=== PATIENT | female | born 1930 | race Caucasian/White ===

== ENCOUNTER 2016-07-18 21:20 | Emergency (ER) | payer MEDICARE, OTHER ==
--- NOTE | 2016-07-18 22:21 | ED ---
Fall HPI - General Chief Complaint: Fall Stated Complaint: Fall/Head Injury Time Seen by Provider: 07/18/16 21:30 Source: patient, family (Daughter) Mode of arrival: EMS Limitations: altered mental status (History of underlying dementia) - History of Present Illness Initial Comments: Patient is an 86-year-old woman brought to be evaluated after she had a fall at her residence [facility]. The patient was noted to be less interested in eating tonight, and staff asked her what the problem was she related that she had a fall. The patient is not able to give any details about what happened. Most of the history is from the patient's daughter, who states that the patient does have significant underlying dementia. She states that the patient does appear to be quieter than usual, more somnolent, but otherwise similar about her usual baseline. The patient is denying any other injury, she indicates the area near her occiput as being somewhat sore but she declines pain medication. She denies any other injury. The patient has been ambulating and alert. MD Complaint: fall -: unknown When Fall Occurred: unsure Fall Witnessed: no Place Fall Occurred: home Loss of Consciousness: unsure Prolonged Down Time?: unclear - Related Data Home Medications Medication Instructions Recorded Confirmed Aspirin 81 mg PO DAILY 02/17/14 07/18/16 Donepezil [Aricept] 10 mg PO HS 02/17/14 07/18/16 Magnesium Oxide [Mag-Ox] 400 mg PO DAILY 02/17/14 07/18/16 amLODIPine BESYLATE/BENAZEPRIL 1 cap PO DAILY 02/17/14 07/18/16 [Lotrel 5-20 mg Capsule] metFORMIN HCL [Glucophage] 500 mg PO QA 02/17/14 07/18/16 Cholecalciferol [Vitamin D3] 4,000 unit PO DAILY 07/18/16 07/18/16 Levothyroxine Sodium [Synthroid] 100 mcg PO DAILY 07/18/16 07/18/16 Telmisartan [Micardis] 40 mg PO DAILY 07/18/16 07/18/16 Thiamine [Vitamin B-1] 100 mg PO DAILY 07/18/16 07/18/16 Allergies Allergy/AdvReac Type Severity Reaction Status Date / Time diazepam [From Valium] AdvReac Unknown Verified 07/18/16 21:57 Review of Systems ROS Statement: Those systems with pertinent positive or pertinent negative responses have been documented in the HPI. ROS Other: All systems not noted in ROS Statement are negative. Eyes: Denies: vision change Respiratory: Denies: cough, dyspnea Cardiovascular: Denies: chest pain Gastrointestinal: Denies: abdominal pain, vomiting Musculoskeletal: Denies: back pain Skin: Denies: rash Neurological: Reports: as per HPI, headache Hematological/Lymphatic: Denies: easy bleeding Past Medical History Past Medical History: Coronary Artery Disease (CAD), Cancer, Dementia, Diabetes Mellitus, Eye Disorder, Memory Impairment, Pneumonia, Thyroid Disorder Additional Past Medical History / Comment(s): CA - lymphoma, thyroid; cataracts History of Any Multi-Drug Resistant Organisms: None Reported Past Surgical History: Appendectomy Additional Past Surgical History / Comment(s): stent placed in neck Past Anesthesia/Blood Transfusion Reactions: No Reported Reaction Past Psychological History: No Psychological Hx Reported Smoking Status: Former smoker Past Alcohol Use History: None Reported Past Drug Use History: None Reported - Past Family History Father Family Medical History: CVA/TIA Mother Family Medical History: Myocardial Infarction (NM) General Exam Limitations: altered mental status General appearance: alert, in no apparent distress Head exam: Present: normocephalic, other (There is an approximately 5-6 cm hematoma overlying the occiput. There is no obvious bony deformity. There is mild tenderness.) Eye exam: Present: normal appearance, PERRL, EOMI. Absent: scleral icterus, conjunctival injection Neck exam: Present: normal inspection, full ROM. Absent: tenderness, meningismus Respiratory exam: Present: normal lung sounds bilaterally. Absent: respiratory distress, wheezes, rales, rhonchi, stridor Cardiovascular Exam: Present: regular rate, normal rhythm, systolic murmur ( Grade 1/6 systolic murmur). Absent: diastolic murmur, rubs, gallop GI/Abdominal exam: Present: soft. Absent: distended, tenderness, guarding, rebound, mass Extremities exam: Present: normal inspection, normal capillary refill. Absent: pedal edema, calf tenderness Back exam: Present: normal inspection. Absent: tenderness, CVA tenderness (R), CVA tenderness (L), paraspinal tenderness, vertebral tenderness Neurological exam: Present: alert, CN II-XII intact, reflexes normal. Absent: motor sensory deficit Skin exam: Present: warm, dry, intact, normal color, other (Review has an approximately 1 cm diameter mole at the superior posterior aspect of the neck. There is some palpable depth. She does family member states that this is a chronic finding). Absent: rash Course Vital Signs 07/18/16 21:24 Temperature 98.2 F Pulse Rate 82 Respiratory 20 Rate Blood Pressure 143/63 O2 Sat by Pulse 99 Oximetry Medical Decision Making - Medical Decision Making Discussed that the mole at the top of the patient's neck is concerning and recommended follow-up with dermatology to consider having biopsy. - EKG Data -: EKG Interpreted by Pa Rate: normal (Approximately 81 bpm) Interpretation: other (The patient's EKG shows what appears to be an atrial sensed, ventricular paced rhythm, that appears otherwise normal.) Disposition Clinical Impression: Closed head injury, Hematoma Disposition: HOME SELF-CARE Condition: Fair Instructions: Fall Prevention for Older Adults (ED), Head Injury (ED) Additional Instructions: As we discussed, follow-up with the oncology physician regarding the mole observed at the top of the neck. Referrals: Sherry Alonzo MD [Primary Care Provider] - 1-2 days Soren Dietz MD [STAFF PHYSICIAN] - 1-2 days
--- NOTE | 2016-07-18 22:51 | CT ---
EXAMINATION TYPE: CT brain wo con DATE OF EXAM: 07/18/2016 10:39 PM COMPARISON: May 16, 2012 HISTORY: Confusion today. Possible fall injury. CT DLP: 916.3 mGycm Automated exposure control for dose reduction was used. FINDINGS: There is no acute intracranial hemorrhage, mass effect, or midline shift identified. The ventricles a nd cortical sulci are prominent with age-related atrophic changes of brain. Periventricular white mat ter ischemic changes are suggested bilaterally. [id number] atrophic changes are suggested in th e cerebellum. Postsurgical changes are suggested in the bilateral eye globes. Mild mucosal thickening is suggested in the right maxillary sinus with chronic sinusitis changes. The re is opacification of mastoid air cells bilaterally suggestive of chronic mastoiditis. IMPRESSION: No acute intracranial hemorrhage, mass effect, or midline shift is seen. No significant interval change. Chronic mastoiditis changes bilaterally. Mild sinusitis changes.
[2016-07-18 23:34] VITALS: BP 147/70; PULSE 79; RESP 16; TEMP 97
== END 2016-07-18 23:40 | disposition home or self-care (01) ==
LOC: EC 21:20
DX: S00.93XA Contusion of unspecified part of head, initial encounter (principal); W19.XXXA Unspecified fall, initial encounter; Y92.009 Unspecified place in unspecified non-institutional (private) residence as the place of occurrence of the external cause; I25.10 Atherosclerotic heart disease of native coronary artery without angina pectoris; F03.90 Unspecified dementia, unspecified severity, without behavioral disturbance, psychotic disturbance, mood disturbance, and anxiety; E07.9 Disorder of thyroid, unspecified; Z85.72 Personal history of non-Hodgkin lymphomas; Z87.891 Personal history of nicotine dependence; Z79.82 Long term (current) use of aspirin; Z79.899 Other long term (current) drug therapy; Z79.84 Long term (current) use of oral hypoglycemic drugs; Z88.8 Allergy status to other drugs, medicaments and biological substances
CPT/HCPCS: 70450; 93005; 99284

== ENCOUNTER 2019-10-27 08:03 | Inpatient (IN) | payer MEDICARE, OTHER ==
[2019-10-27] MEDS ORDERED: VANCOMYCIN IV PER PHARMACY 1 EACH MISC MISCELLANE PRN (08:20)
[2019-10-27] MEDS ORDERED: ACETAMINOPHEN TAB 500 MG TAB PO STA (08:20)
[2019-10-27] MEDS ORDERED: CEFEPIME 2 GM in SODIUM CHLORIDE 0.9% 100 ML IVPB STA (08:21)
[2019-10-27] MEDS ORDERED: ACETAMINOPHEN SUPPOSITORY 650 MG SUPP RECTAL STA (08:27)
[2019-10-27] MEDS ORDERED: VANCOMYCIN 1,000 MG in SODIUM CHLORIDE 0.9% 250 ML IVPB STA (08:31)
--- NOTE | 2019-10-27 08:31 | ED ---
General Adult HPI - General Stated complaint: altered mental status/fever Time Seen by Provider: 10/27/19 08:06 - History of Present Illness Initial comments: Dictation was produced using [employer] dictation software. please excuse any grammatical, word or spelling errors. This patient was cared for during a federal and state declared state of emerg ency secondary to Covid 19 Chief Complaint: 89-year-old female brought in for fever and altered mental status History of Present Illness: Is 89-year-old female she is brought in from the [facility] where she was found to be unresponsive and febrile. Patient unable to provide HPI at this time. Patient brought in from [facility] which is a geriatric assisted living facility. She does have a living will that states that she is DO NOT RESUSCITATE. According to EMS upon initial evaluation patient was alert and oriented 0. She does not follow commands. Medications reviewed. Patient has history of hypertension, dementia, hypothyroidism, [id number] diabetes The ROS documented in this emergency department record has been reviewed and confirmed by me. Those systems with pertinent positive or negative responses have been documented in the HPI. All other systems are other negative and/or noncontributory. PHYSICAL EXAM: General Impression: Unresponsive, contracture of the left upper extremity, moves right upper extremity and bilateral lower extremities to nail bed pressure HEENT: Normocephalic atraumatic, extra-ocular movements intact, pupils equal and reactive to light bilaterally, dry mucous membranes. Cardiovascular: Heart regular rate and rhythm Chest: Mildly tachypneic Abdomen: abdomen soft, non-tender, non-distended, no organomegaly Musculoskeletal: Pulses present and equal in all extremities, no peripheral edema Motor: no focal deficits noted Neurological: Does not follow commands, does not speak, contracture of the left upper extremity. Moves other extremities to painful stimuli. Skin: Intact with no visualized rashes Rectal exam: Grade 1 Sacral ulcer, no perirectal induration or fullness ED course: 89-year-old female presents with altered mental status and pyrexia. It is unclear what patient's baseline mental status is. Concerning patient is a resident at a assisted living facility it is assumed that patient is rather high functioning. She has minimal comorbidities according to her daily medication li [facility]. Nurse had discussion with patient's daughter. Daughter reports that patient is usually a known time 0. Laboratory evaluation obtained. Leukocytosis of 15.4, neutrophils of 12.5. Coag panel unremarkable. Metabolic panel shows anion gap acidosis. Lactic acidosis 2.8. Elevated BUN to creatinine ratio with mild uremia. Urinalysis is negative for UTI. Computed tomography scan of the brain is unremarkable. Chest x-ray concerning for CHF versus pneumonia. Computed tomography scan of the a bdomen and pelvis was obtained showing findings of pneumonia at the lung bases. Is also findings to suggest enteritis fecal impaction and colitis. Patient broad-spectrum antibiotics. Patient hemodynamically stable at this time. The catheter was placed. Pending urine studies. Pending coronavirus. Patient be continued on coronavirus precautions. EKG interpretation: Ventricular rate 119, ventricular paced rhythm. No criteria to suggest concerning EKG changes based on Sgarbossa criteria - Related Data Home Medications Medication Instructions Recorded Confirmed Aspirin 81 mg PO DAILY 02/17/14 07/18/16 Donepezil [Aricept] 10 mg PO HS 02/17/14 07/18/16 Magnesium Oxide [Mag-Ox] 400 mg PO DAILY 02/17/14 07/18/16 amLODIPine BESYLATE/BENAZEPRIL 1 cap PO DAILY 02/17/14 07/18/16 [Lotrel 5-20 mg Capsule] metFORMIN HCL [Glucophage] 500 mg PO QAM 02/17/14 07/18/16 Cholecalciferol [Vitamin D3] 4,000 unit PO DAILY 07/18/16 07/18/16 Levothyroxine Sodium [Synthroid] 100 mcg PO DAILY 07/18/16 07/18/16 Telmisartan [Micardis] 40 mg PO DAILY 07/18/16 07/18/16 Thiamine [Vitamin B-1] 100 mg PO DAILY 07/18/16 07/18/16 Allergies Allergy/AdvReac Type Severity Reaction Status Date / Time diazepam [From Valium] AdvReac Unknown Verified 07/18/16 21:57 Review of Systems ROS Statement: Those systems with pertinent positive or pertinent negative responses have been documented in the HPI. ROS Other: All systems not noted in ROS Statement are negative. Past Medical History Past Medical History: Coronary Artery Disease (CAD), Cancer, Dementia, Diabetes Mellitus, Eye Disorder, Memory Impairment, Pneumonia, Thyroid Disorder Additional Past Medical History / Comment(s): CA - lymphoma, thyroid; cataracts History of Any Multi-Drug Resistant Organisms: None Reported Past Surgical History: Appendectomy Additional Past Surgical History / Comment(s): stent placed in neck Past Anesthesia/Blood Transfusion Reactions: No Reported Reaction Past Psychological History: No Psychological Hx Reported Smoking Status: Former smoker Past Alcohol Use History: None Reported Past Drug Use History: None Reported - Past Family History Father Family Medical History: CVA/TIA Mother Family Medical History: Myocardial Infarction (NH) Course Vital Signs 10/27/19 08:23 Temperature 103.7 F H Pulse Rate 124 H Respiratory 26 H Rate Blood Pressure 172/95 O2 Sat by Pulse 100 Oximetry Medical Decision Making - Lab Data Result diagrams: 10/27/19 08:26 10/27/19 08:26 Lab Results 10/27/19 10/27/19 10/27/19 Range/Units 08:26 08:26 08:26 WBC 15.4 H (3.8-10.6) k/uL RBC 4.44 (3.80-5.40) m/uL Hgb 13.6 (11.4-16.0) gm/dL Hct 43.2 (34.0-46.0) % MCV 97.4 (80.0-100.0) fL MCH 30.7 (25.0-35.0) pg MCHC 31.5 (31.0-37.0) g/dL RDW 13.6 (11.5-15.5) % Plt Count 235 (150-450) k/uL Neutrophils % 82 % Lymphocytes % 16 % Monocytes % 1 % Eosinophils % 0 % Basophils % 0 % Neutrophils # 12.5 H (1.3-7.7) k/uL Lymphocytes # 2.4 (1.0-4.8) k/uL Monocytes # 0.2 (0-1.0) k/uL Eosinophils # 0.0 (0-0.7) k/uL Basophils # 0.1 (0-0.2) k/uL PT 11.4 (9.0-12.0) sec INR 1.1 (<1.2) APTT 24.0 (22.0-30.0) sec Sodium 137 (137-145) mmol/L Potassium 4.1 (3.5-5.1) mmol/L Chloride 103 (98-107) mmol/L Carbon Dioxide 19 L (22-30) mmol/L Anion Gap 15 mmol/L BUN 23 H (7-17) mg/dL Creatinine 0.78 (0.52-1.04) mg/dL Est GFR (CKD-EPI)AfAm 79 (>60 ml/min/1.73 sqM) Est GFR (CKD-EPI)NonAf 69 (>60 ml/min/1.73 sqM) Glucose 289 H (74-99) mg/dL Plasma Lactic Acid Jaime (0.7-2.0) mmol/L Calcium 8.9 (8.4-10.2) mg/dL Total Bilirubin 0.9 (0.2-1.3) mg/dL AST 111 H (14-36) U/L ALT 40 H (4-34) U/L Alkaline Phosphatase 123 (38-126) U/L C-Reactive Protein (<10.0) mg/L Total Protein 7.7 (6.3-8.2) g/dL Albumin 3.9 (3.5-5.0) g/dL Urine Color Urine Appearance (Clear) Urine pH (5.0-8.0) Ur Specific [place] (1.001-1.035) Urine Protein (Negative) Urine Glucose (UA) (Negative) Urine Ketones (Negative) Urine Blood (Negative) Urine Nitrite (Negative) Urine Bilirubin (Negative) Urine Urobilinogen (<2.0) mg/dL Ur Leukocyte Esterase (Negative) Urine RBC (0-5) /hpf Urine WBC (0-5) /hpf Ur Squamous Epith Cells (0-4) /hpf Urine Bacteria (None) /hpf Hyaline Casts (0-2) /lpf Urine Mucus (None) /hpf 10/27/19 10/27/19 10/27/19 Range/Units 08:26 08:26 09:47 WBC (3.8-10.6) k/uL RBC (3.80-5.40) m/uL Hgb (11.4-16.0) gm/dL Hct (34.0-46.0) % MCV (80.0-100.0) fL MCH (25.0-35.0) pg MCHC (31.0-37.0) g/dL RDW (11.5-15.5) % Plt Count (150-450) k/uL Neutrophils % % Lymphocytes % % Monocytes % % Eosinophils % % Basophils % % Neutrophils # (1.3-7.7) k/uL Lymphocytes # (1.0-4.8) k/uL Monocytes # (0-1.0) k/uL Eosinophils # (0-0.7) k/uL Basophils # (0-0.2) k/uL PT (9.0-12.0) sec INR (<1.2) APTT (22.0-30.0) sec Sodium (137-145) mmol/L Potassium (3.5-5.1) mmol/L Chloride (98-107) mmol/L Carbon Dioxide (22-30) mmol/L Anion Gap mmol/L BUN (7-17) mg/dL Creatinine (0.52-1.04) mg/dL Est GFR (CKD-EPI)AfAm (>60 ml/min/1.73 sqM) Est GFR (CKD-EPI)NonAf (>60 ml/min/1.73 sqM) Glucose (74-99) mg/dL Plasma Lactic Acid Jaime 2.8 H* (0.7-2.0) mmol/L Calcium (8.4-10.2) mg/dL Total Bilirubin (0.2-1.3) mg/dL AST (14-36) U/L ALT (4-34) U/L Alkaline Phosphatase (38-126) U/L C-Reactive Protein <5.0 (<10.0) mg/L Total Protein (6.3-8.2) g/dL Albumin (3.5-5.0) g/dL Urine Color Yellow Urine Appearance Cloudy H (Clear) Urine pH 6.0 (5.0-8.0) Ur Specific [place] 1.031 (1.001-1.035) Urine Protein 3+ H (Negative) Urine Glucose (UA) 2+ H (Negative) Urine Ketones 1+ H (Negative) Urine Blood Small H (Negative) Urine Nitrite Negative (Negative) Urine Bilirubin Negative (Negative) Urine Urobilinogen <2.0 (<2.0) mg/dL Ur Leukocyte Esterase Negative (Negative) Urine RBC 4 (0-5) /hpf Urine WBC 3 (0-5) /hpf Ur Squamous Epith Cells <1 (0-4) /hpf Urine Bacteria Rare H (None) /hpf Hyaline Casts 1 (0-2) /lpf Urine Mucus Rare H (None) /hpf Disposition Clinical Impression: Sepsis Disposition: ADMITTED IP TO THIS HOSP Condition: Critical Referrals: None,Stated [Primary Care Provider] - 1-2 days Decision Time: 10:23
[2019-10-27] MEDS ORDERED: SODIUM CHLORIDE 0.9% 500 ML 100 ML IV STA (08:39)
[2019-10-27 08:42] LABS: Basophils # (A) 0.1 k/uL (0-0.2); Basophils % (A) 0 %; Eosinophils % (A) 0 %; HCT 43.2 % (34.0-46.0); HGB 13.6 gm/dL (11.4-16.0); Lymphocytes # (A) 2.4 k/uL (1.0-4.8); Lymphocytes % (A) 16 %; MCH 30.7 pg (25.0-35.0); MCHC 31.5 g/dL (31.0-37.0); MCV 97.4 fL (80.0-100.0); Mean Platelet Volume 8.7; Monocytes # (A) 0.2 k/uL (0-1.0); Monocytes % (A) 1 %; Neutrophils # (A) 12.5 k/uL (1.3-7.7); Neutrophils % (A) 82 %; Platelet Count 235 k/uL (150-450); RBC 4.44 m/uL (3.80-5.40); RDW 13.6 % (11.5-15.5); WBC 15.4 k/uL (3.8-10.6)
[2019-10-27 08:47] LABS: Albumin 3.9 g/dL (3.5-5.0); Calcium 8.9 mg/dL (8.4-10.2); Potassium 4.1 mmol/L (3.5-5.1); Total Bilirubin 0.9 mg/dL (0.2-1.3); Total Protein 7.7 g/dL (6.3-8.2)
[2019-10-27 08:50] LABS: INR 1.1 (<1.2); Prothrombin Time 11.4 sec (9.0-12.0)
--- NOTE | 2019-10-27 09:18 | XR ---
EXAMINATION TYPE: XR chest 1V portable DATE OF EXAM: 10/27/2019 COMPARISON: Prior chest 02/18/2014 HISTORY: Fever, loss of consciousness, abnormal chest x-ray TECHNIQUE: Single frontal view of the chest is obtained. FINDINGS: The heart is enlarged. There is a generator in the left pectoral region, leads in the righ t atrium and ventricle. Patient is rotated. There is no evident pneumothorax. Patchy bibasilar increa sed attenuation is present, the interstitium and central vascularity appear prominently. Aorta is den se. IMPRESSION: Correlate for congestive heart failure. Pneumonia not excluded.
--- NOTE | 2019-10-27 09:23 | CT ---
EXAMINATION TYPE: CT brain wo con DATE OF EXAM: 10/27/2019 COMPARISON: Prior CT brain 07/18/2016 HISTORY: AMS CT DLP: 1043.4 mGycm Automated exposure control for dose reduction was used. Head CT performed without contrast FINDINGS: There is no significant interval change. Cortical atrophy is likely age-related. Periventricular whit e matter shows patchy low attenuation. There is no hemorrhage or hydrocephalus. Cerebral vascular jas cifications are noted. Paranasal sinuses and mastoid air cells as visualized are remarkable for some inflammatory change in the left mastoids.. IMPRESSION: NO ACUTE BRAIN ABNORMALITY. MILD INFLAMMATORY CHANGE LEFT MASTOID AIR CELLS
[2019-10-27] MEDS: SODIUM CHLORIDE 0.9% 500 ML 500 ML IV SCH ×3 (09:28→10:08)
[2019-10-27 10:02] LABS: Appearance,Urine Cloudy (Clear); Bacteria,Urine Rare /hpf; Bilirubin,Urine Negative (Negative); Blood,Urine Small (Negative); Color,Urine Yellow; Glucose,Urine (UA) 2+ (Negative); Hyaline Casts,Urine 1 /lpf (0-2); Ketones,Urine 1+ (Negative); Leukocyte Esterase,Urine Negative (Negative); Mucus,Urine Rare /hpf; Nitrite,Urine Negative (Negative); Protein,Urine 3+ (Negative); RBC,Urine 4 /hpf (0-5); Specific Gravity,Urine 1.031 (1.001-1.035); Squamous Epithelial Cell,Urine <1 /hpf (0-4); Urobilinogen,Urine <2.0 mg/dL (<2.0); WBC,Urine 3 /hpf (0-5)
--- NOTE | 2019-10-27 10:10 | CT ---
EXAMINATION TYPE: CT abdomen pelvis w con DATE OF EXAM: 10/27/2019 COMPARISON: Chest x-ray same date HISTORY: Sepsis CT DLP: 638.5 mGycm Automated exposure control for dose reduction was used. TECHNIQUE: Helical acquisition of images from the lung bases through the pelvis have been completed. CONTRAST: Performed without Oral Contrast and with IV Contrast, patient injected with 100 mL of Isovue 300. FINDINGS: There are some anasarca changes present.0 LUNG BASES: Bilateral airspace disease is noted at the lung bases. Intracardiac leads are present. No pericardial effusion, no pleural effusion.. AORTA: No significant abnormality is appreciated. LIVER/GB: Mild prominence of intrahepatic biliary ducts likely due to postcholecystectomy change. PANCREAS: Calcifications along and atrophic pancreas with some low attenuation possibly representing pseudocyst formation or atrophy versus prominence of the pancreatic duct suggest chronic pancreatitis . SPLEEN: No significant abnormality is seen. ADRENALS: No significant abnormality is seen. KIDNEYS: Extensive cystic change present within the upper pole the left kidney and parapelvic cysts w as smaller subcentimeter cortical cyst associated with the right kidney. REPRODUCTIVE ORGANS: Extensive calcifications within the uterus and be due to fibroids. BOWEL: Small bowel folds show some questionable wall thickening and fluid-filled appearance, no obst ruction. Appendix is not seen. There is fecal distention of the rectum, correlate for stroke oral col itis, fecal impaction. Small amount of inflammatory change present in the surrounding fat, minimal fl uid density FREE AIR: No Free Air visible. ASCITES: None visible. PELVIC ADENOPATHY: None visualized. RETROPERITONEAL ADENOPATHY: No Retroperitoneal Adenopathy visible. URINARY BLADDER: No significant abnormality is seen. OSSEOUS STRUCTURES: Suspect osteoporotic appearance, there is heterogeneous density. Degenerative di sc changes are present in the lumbar spine with anterolisthesis L4-5, vacuum phenomenon intervertebra l levels multiple levels. There is multilevel spondylosis present.. IMPRESSION: CORRELATE FOR PNEUMONIA, PULMONARY EDEMA. POSTOP CHANGES. FINDINGS OF CHRONIC PANCREATITIS. HETEROGEN EOUS BONE DENSITY IS INDETERMINATE. CORRELATE FOR ENTERITIS, FECAL IMPACTION, AILYN COLITIS.
[2019-10-27] MEDS ORDERED: NALOXONE 0.4 MG/ML 1 ML VIAL IV PRN (10:19)
[2019-10-27] MEDS ORDERED: ONDANSETRON 4 MG/2 ML VIAL IVP PRN (10:19)
[2019-10-27] MEDS: SODIUM CHLORIDE 0.9% 1,000 ML IV SCH ×2 (12:13→21:05)
[2019-10-27] MEDS ORDERED: PNEUMONIA PROTOCOL UTILIZED 1 EACH MISC PO PRN (13:46)
[2019-10-27] MEDS ORDERED: MELATONIN 3 MG TABLET PO PRN (13:46)
[2019-10-27] MEDS ORDERED: ACETAMINOPHEN TAB 325 MG TAB PO PRN (13:46)
--- NOTE | 2019-10-27 13:50 | P.HPIM ---
History of Present Illness H&P Date: 10/27/19 Chief Complaint: altered mentation Patient is an 89 yo CF with dementia, diabetes, hypothyroidism, and multiple other comorbid conditions who presented to the emergency department via EMS for altered mentation. Per EMS patient was 85% on room and air and placed on non rebreather. She was also sound to be soiled with soft brown stool and urine. On arrival to the ED her rectal temp was 103.7. Labs showed a WBC of 15.4, CO 2 19, Aniong gap 15, blood sugar 289, and lactic acid 2.8. She had mildly elevated AST and ALT. Urinalsysis showed glucosuria, proteinuria, and urine ketones. CXR showed patchy bibasilar infiltrates. CT head showed no acute brain abnormality but mild inflammatory changes left mastoid air cell. CT abd and pelvis showed pneumonia or pulm edema, chronic pancreatitis, with fecal impaction and possible colitis. She was given cefepime and vanco in the ED as well as 3L of IV fluid. Daughter was called and confirmed that patient is a DNR. Patient seen and examined at bedside. She is alert to self alone, able to follow commands. Attempted to call Daughter and no answer. Past medical history is reviewed and verified by reviewing nursing documentation and prior hospitalization in February 2014. Review of Systems Unable to obtain review of systems secondary to advanced dementia ROS unobtainable: due to mental status Past Medical History Past Medical History: Coronary Artery Disease (CAD), Cancer, Dementia, Diabetes Mellitus, Eye Disorder, Memory Impairment, Pneumonia, Thyroid Disorder Additional Past Medical History / Comment(s): CA - lymphoma, thyroid; cataracts, third-degree AV block History of Any Multi-Drug Resistant Organisms: None Reported Past Surgical History: Appendectomy Additional Past Surgical History / Comment(s): stent placed in neck, permanent pacemaker Past Anesthesia/Blood Transfusion Reactions: No Reported Reaction Past Psychological History: No Psychological Hx Reported Smoking Status: Former smoker Past Alcohol Use History: None Reported Past Drug Use History: None Reported - Past Family History Father Family Medical History: CVA/TIA Mother Family Medical History: Myocardial Infarction (ND) Medications and Allergies Home Medications Medication Instructions Recorded Confirmed Type Aspirin 81 mg PO DAILY 02/17/14 07/18/16 History Donepezil [Aricept] 10 mg PO HS 02/17/14 07/18/16 History Magnesium Oxide [Mag-Ox] 400 mg PO DAILY 02/17/14 07/18/16 History amLODIPine BESYLATE/BENAZEPRIL 1 cap PO DAILY 02/17/14 07/18/16 History [Lotrel 5-20 mg Capsule] metFORMIN HCL [Glucophage] 500 mg PO QAM 02/17/14 07/18/16 History Cholecalciferol [Vitamin D3] 4,000 unit PO DAILY 07/18/16 07/18/16 History Levothyroxine Sodium [Synthroid] 100 mcg PO DAILY 07/18/16 07/18/16 History Telmisartan [Micardis] 40 mg PO DAILY 07/18/16 07/18/16 History Thiamine [Vitamin B-1] 100 mg PO DAILY 07/18/16 07/18/16 History Allergies Allergy/AdvReac Type Severity Reaction Status Date / Time diazepam [From Valium] AdvReac Unknown Verified 07/18/16 21:57 Physical Exam Osteopathic Statement: *. No significant issues noted on an osteopathic structural exam other than those noted in the History and Physical/Consult. Vitals: Vital Signs Temp Pulse Resp BP Pulse Ox 10/27/19 12:00 78 18 92/52 96 10/27/19 11:00 80 18 95/50 96 10/27/19 10:29 100.6 F H 89 18 103/53 96 10/27/19 09:29 18 10/27/19 08:23 103.7 F H 124 H 26 H 172/95 100 Intake and Output 10/26/19 10/27/19 10/27/19 22:59 06:59 14:59 Output Total 350 Balance -350 Output: Urine 350 Uretheral (Hodge) 350 Other: Weight 51.256 kg General: Ill appearing, no distress, appears at stated age, normal weight Derm: no unusual rashes/lesions no unusual ecchymoses, warm, dry Head: atraumatic, normocephalic, symmetric Eyes: EOMI, no lid lag, anicteric sclera, pupils equal round reactive to light ENT: Nose and ears atraumatic, no thrush, no pharyngeal erythema Neck: No thyromegaly, no cervical lymphadenopathy, trachea midline, supple Mouth: no lip lesion, mucus membranes dry Cardiovascular: S1S2 reg, no murmur, positive posterior tibial pulse bilateral, 2+ edema bilateral lower extremities, capillary refill less than 2 seconds Lungs: Crackles bilateral bases right greater than left , no accessory muscle use, mild conversational dyspnea Abdominal: soft, nontender to palpation, no guarding, no appreciable organomegaly, normal bowel sounds Ext: no gross muscle atrophy, muscle strength 5 out of 5 in all 4 extremities grossly, no contractures, Neuro: CN II-XI grossly intact, light touch intact all 4 extremities, finger to nose within normal limits, Psych: Alert , oriented to self only not time or location, appropriate affect Results CBC & Chem 7: 10/27/19 08:26 10/27/19 08:26 Labs: Abnormal Lab Results - Last 24 Hours (Table) 10/27/19 10/27/19 10/27/19 Range/Units 08:26 08:26 08:26 WBC 15.4 H (3.8-10.6) k/uL Neutrophils # 12.5 H (1.3-7.7) k/uL Carbon Dioxide 19 L (22-30) mmol/L BUN 23 H (7-17) mg/dL Glucose 289 H (74-99) mg/dL Plasma Lactic Acid Jaime 2.8 H* (0.7-2.0) mmol/L AST 111 H (14-36) U/L ALT 40 H (4-34) U/L Urine Appearance (Clear) Urine Protein (Negative) Urine Glucose (UA) (Negative) Urine Ketones (Negative) Urine Blood (Negative) Urine Bacteria (None) /hpf Urine Mucus (None) /hpf 10/27/19 Range/Units 09:47 WBC (3.8-10.6) k/uL Neutrophils # (1.3-7.7) k/uL Carbon Dioxide (22-30) mmol/L BUN (7-17) mg/dL Glucose (74-99) mg/dL Plasma Lactic Acid Jaime (0.7-2.0) mmol/L AST (14-36) U/L ALT (4-34) U/L Urine Appearance Cloudy H (Clear) Urine Protein 3+ H (Negative) Urine Glucose (UA) 2+ H (Negative) Urine Ketones 1+ H (Negative) Urine Blood Small H (Negative) Urine Bacteria Rare H (None) /hpf Urine Mucus Rare H (None) /hpf Chest x-ray: report reviewed, image reviewed (Bilateral interaction initial infiltrates right greater than left) CT scan - abdomen: report reviewed CT scan - pelvis: report reviewed Thrombosis Risk Factor Assmnt - DVT/VTE Prophylaxis DVT/VTE Prophylaxis: Mechanical Prophylaxis ordered Assessment and Plan Assessment: Bilateral interstitial infiltrate with sepsis -Suspect pneumonia given given sepsis criteria -Patient does have bilateral lower extremity edema and will check echocardiogram to rule out possibility of congestive heart failure -Change antibiotics to Rocephin and Zithromax -Repeat chest x-ray in a.m. -Await Covid 19 testing -Patient is unable to produce sputum culture -Bronchodilators - await procalcitonin - await blood cultures Probable fecal impaction vs colitis -Enema 1 -continue to monitor for signs of colitis, will be on rocephin, if develops pain, continued fever will add flagyl Lactic acidosis -IV fluids Diabetes mellitus type 2 -Hold oral medications -Sliding-scale insulin -Check hemoglobin A1c Transaminitis -Suspect this to be reflective of sepsis -Repeat LFTs in a.m. -If continue to elevate will check hepatitis profiles and liver ultrasound Anion gap metabolic acidosis -Likely related to lactic acidosis -IV fluids -Repeat in a.m. 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 Surrogate decision-maker: Daughter CODE STATUS: DO NOT RESUSCITATE, confirmed by emergency department DVT prophylaxis: Lovenox Discussed with: Patient, nursing Anticipated discharge date: 3-[address]: [facility] A total of 65 minutes were spent on the care of this complex patient more than 5 0% of the time was spent in counseling and care coordination.
[2019-10-27 15:02] LABS: Glucose,Whole Blood 211 mg/dL (75-99)
[2019-10-27] MEDS ORDERED: LISINOPRIL 10 MG TAB PO SCH (20:00)
[2019-10-27] MEDS ORDERED: amLODIPine 2.5 MG TAB PO SCH (20:00)
[2019-10-27 20:08] LABS: Glucose,Whole Blood 192 mg/dL (75-99)
[2019-10-27] MEDS: INSULIN ASPART (NovoLOG) 100 UNIT/ML VIAL SQ SCH ×2 (20:53→21:02)
[2019-10-27] MEDS: AZELASTINE 137MCG/SPRAY EA NOSTRIL SCH (21:02)
[2019-10-27] MEDS: MIRTAZAPINE 15 MG TAB PO SCH (21:03)
[2019-10-28] MEDS ORDERED: SODIUM CHLORIDE 0.9% 500 ML 500 ML IV ONE (04:25)
[2019-10-28] MEDS: SODIUM CHLORIDE 0.9% 1,000 ML IV SCH ×2 (04:41→20:11)
[2019-10-28 06:18] LABS: Glucose,Whole Blood 99 mg/dL (75-99)
[2019-10-28] MEDS: INSULIN ASPART (NovoLOG) 100 UNIT/ML VIAL SQ SCH ×4 (06:38→20:05)
[2019-10-28] MEDS ORDERED: LOSARTAN 50 MG TAB PO SCH (08:00)
[2019-10-28] MEDS: PANTOPRAZOLE 40 MG/10 ML VIAL IV SCH (08:13)
[2019-10-28] MEDS: ASPIRIN 81 MG PO SCH (08:13)
[2019-10-28] MEDS: LEVOTHYROXINE 112 MCG TAB PO SCH (08:13)
--- NOTE | 2019-10-28 08:17 | XR ---
EXAMINATION TYPE: XR chest 1V portable DATE OF EXAM: 10/28/2019 COMPARISON: 10/27/2019 HISTORY: COVID 19 pneumonia TECHNIQUE: Single frontal view of the chest is obtained. FINDINGS: Improved aeration of the right middle lobe and right lung base. Strand-like probable atele ctasis at the left lung base. Biapical pleural parenchymal scarring remains. Cardiomediastinal silhou ette is stable with dual lead left-sided cardiac device. Diffuse osseous demineralization. IMPRESSION: Improved multifocal right basilar and right middle lobe consolidations with strand-like left basilar probable atelectasis.
[2019-10-28 08:32] LABS: Basophils % (A) 0 %; Eosinophils % (A) 0 %; HCT 34.7 % (34.0-46.0); Hypochromasia Slight; Lymphocytes # (A) 0.8 k/uL (1.0-4.8); Lymphocytes % (A) 7 %; MCHC 31.8 g/dL (31.0-37.0); MCV 100.5 fL (80.0-100.0); Macrocytosis Slight; Mean Platelet Volume 9.2; Monocytes # (A) 0.5 k/uL (0-1.0); Monocytes % (A) 4 %; Neutrophils # (A) 10.4 k/uL (1.3-7.7); Neutrophils % (A) 88 %; Platelet Count 127 k/uL (150-450); RBC 3.45 m/uL (3.80-5.40); RDW 13.9 % (11.5-15.5); WBC 11.8 k/uL (3.8-10.6)
[2019-10-28 08:44] LABS: Albumin 2.5 g/dL (3.5-5.0); Calcium 7.5 mg/dL (8.4-10.2); Magnesium 1.3 mg/dL (1.6-2.3); Total Bilirubin 0.5 mg/dL (0.2-1.3); Total Protein 5.5 g/dL (6.3-8.2)
[2019-10-28 08:50] LABS: D-Dimer 3.1 mg/L FEU (<0.60); Prothrombin Time 10.7 sec (9.0-12.0)
[2019-10-28 08:56] LABS: C Reactive Protein 18.3 mg/L (<10.0)
[2019-10-28] MEDS ORDERED: VANCOMYCIN 1,000 MG in SODIUM CHLORIDE 0.9% 250 ML IVPB SCH (09:00)
[2019-10-28] MEDS: AZELASTINE 137MCG/SPRAY EA NOSTRIL SCH ×2 (09:45→20:11)
[2019-10-28 11:44] LABS: Glucose,Whole Blood 95 mg/dL (75-99)
--- NOTE | 2019-10-28 15:00 | ECHOF ---
Referral Reason:chf MEASUREMENTS -------- HEIGHT: 152.4 cm WEIGHT: 41.7 kg BP: 100/51 IVSd: 1.5 cm (0.6 - 1.1) LVIDd: 3.5 cm (3.9 - 5.3) LVPWd: 1.3 cm (0.6 - 1.1) IVSs: 1.6 cm LVIDs: 2.5 cm LVPWs: 1.6 cm LA Diam: 3.6 cm (2.7 - 3.8) RVIDd: 2.8 cm (< 3.3) LAESV Index (A-L): 26.87 ml/m Ao Diam: 2.7 cm (2.0 - 3.7) AV Cusp: 1.9 cm (1.5 - 2.6) EPSS: 1.5 cm MV E Stephon: 0.81 m/s MV DecT: 194 ms MV A Stephon: 1.38 m/s MV E/A Ratio: 0.59 RAP: 15.00 mmHg RVSP: 45.64 mmHg MV EF SLOPE: 2.44 mm/s (70 - 150) MV EXCURSION: 7.61 mm (> 18.000) FINDINGS -------- Paced rhythm. This was a technically adequate study. The left ventricular size is normal. There is moderate concentric left ventricular hypertrophy. O verall left ventricular systolic function is mild-moderately impaired with, an EF between 40 - 45 %. Apical anterior LV wall motion is hypokinetic. Apical lateral LV wall motion is hypokinetic. Apical inferior LV wall motion is hypokinetic. Apical septum LV wall motion is hypokinetic. LVEF 40% The right ventricle is normal in size. Normal LA size by volume 22+/-6 ml/m2. The right atrium is normal in size. Interatrial and interventricular septum intact. There is mild aortic valve sclerosis. The mitral valve leaflets are mildly thickened. Mild mitral annular calcification present. There is trace to mild mitral regurgitation. Mild tricuspid regurgitation present. There is mild pulmonary hypertension. The right ventricular systolic pressure, as measured by Doppler, is 45.64mmHg. Trace/mild (physiologic) pulmonic regurgitation. The aortic root size is normal. Normal inferior vena cava with less than 50% inspiratory collapse consistent with estimated right atr ial pressure of 15 mmHg. There is no pericardial effusion. CONCLUSIONS -------- 1. Paced rhythm. 2. This was a technically adequate study. 3. The left ventricular size is normal. 4. There is moderate concentric left ventricular hypertrophy. 5. Overall left ventricular systolic function is mild-moderately impaired with, an EF between 40 - 45 %. 6. Apical anterior LV wall motion is hypokinetic. 7. Apical lateral LV wall motion is hypokinetic. 8. Apical inferior LV wall motion is hypokinetic. 9. Apical septum LV wall motion is hypokinetic. 10. The right ventricle is normal in size. 11. Normal LA size by volume 22+/-6 ml/m2. 12. The right atrium is normal in size. 13. Interatrial and interventricular septum intact. 14. There is mild aortic valve sclerosis. 15. The mitral valve leaflets are mildly thickened. 16. Mild mitral annular calcification present. 17. There is trace to mild mitral regurgitation. 18. Mild tricuspid regurgitation present. 19. There is mild pulmonary hypertension. 20. The right ventricular systolic pressure, as measured by Doppler, is 45.64mmHg. 21. Trace/mild (physiologic) pulmonic regurgitation. 22. The aortic root size is normal. 23. Normal inferior vena cava with less than 50% inspiratory collapse consistent with estimated right atrial pressure of 15 mmHg. 24. There is no pericardial effusion. SASH STICKER: Maria G Norris RDCS
[2019-10-28] MEDS: AZITHROMYCIN 500 MG TAB PO SCH (15:32)
[2019-10-28] MEDS ORDERED: HEPARIN SODIUM,PORCINE 5,000 UNIT/ML 1 ML VIAL SQ SCH (15:41)
[2019-10-28 16:50] LABS: Glucose,Whole Blood 119 mg/dL (75-99)
[2019-10-28 19:28] LABS: Hemoglobin A1C 5.9 % (4.0-6.0)
[2019-10-28 20:04] LABS: Glucose,Whole Blood 156 mg/dL (75-99)
[2019-10-28] MEDS: MIRTAZAPINE 15 MG TAB PO SCH (20:10)
[2019-10-28] MEDS: HEPARIN SODIUM,PORCINE 5,000 UNIT/ML 1 ML VIAL SQ SCH (20:11)
--- NOTE | 2019-10-28 21:16 | P.PN ---
Subjective Progress Note Date: 10/28/19 Principal diagnosis: sepsis Jennifer Vargas is an 89 yo F with hx dementia, HTN, T2DM who presented via EMS from her [place] [facility] with fever and hypoxia. She was initially febrile to 103 with tachycardia and tachypnea. WBC 15k. Her COVID PCR was negative, blood culture negative, UA with few bacteria. Pt has been on rocephin and azithromycin, has been afebrile overnight, she is lethargic but rousable. Echo today showed mild pulmonary HTN and LVEF 45%. Objective - Vital Signs Vital signs: Vital Signs Temp 97.8 F 10/28/19 20:00 Pulse 78 10/28/19 20:00 Resp 18 10/28/19 20:00 BP 132/65 10/28/19 20:00 Pulse Ox 97 10/28/19 20:00 Intake & Output 10/28/19 10/28/19 10/29/19 06:59 18:59 06:59 Intake Total 0 1315 Output Total 151 250 Balance -151 1065 Weight 41.9 kg 41.9 kg Intake: IV 925 Sodium Chloride 0.9% 1, 800 000 ml @ 100 mls/hr IV . Q10H SHAREE Rx#:[id number] Vancomycin 750 mg In 125 Sodium Chloride 0.9% 250 ml @ 125 mls/hr IVPB Q24H SHAREE Rx#:[id number] Oral 0 390 Output: Urine 150 250 Uretheral (Hodge) 50 150 Urine/Stool Mix 1 Other: Voiding Method Indwelling Catheter Indwelling Catheter Indwelling Catheter # Voids 1 - Exam General: thin elderly female in NAD. Vitals reviewed Lungs: diminished breath sounds, no wheezes or rales CV: Regular rate and rhythm, no murmur. Peripheral pulses 1+. 2+ edema cassandra Abdomen: soft, nondistended, no organomegaly Skin: warm and dry. - Labs CBC & Chem 7: 10/28/19 07:25 10/28/19 07:25 Labs: Abnormal Lab Results - Last 24 Hours (Table) 10/28/19 10/28/19 10/28/19 Range/Units 07:25 07:25 07:25 WBC 11.8 H (3.8-10.6) k/uL RBC 3.45 L (3.80-5.40) m/uL Hgb 11.0 L (11.4-16.0) gm/dL MCV 100.5 H (80.0-100.0) fL Plt Count 127 L (150-450) k/uL Neutrophils # 10.4 H (1.3-7.7) k/uL Lymphocytes # 0.8 L (1.0-4.8) k/uL D-Dimer 3.10 H (<0.60) mg/L FEU Chloride 113 H (98-107) mmol/L Carbon Dioxide 19 L (22-30) mmol/L BUN 25 H (7-17) mg/dL Glucose 116 H (74-99) mg/dL POC Glucose (mg/dL) (75-99) mg/dL Calcium 7.5 L (8.4-10.2) mg/dL Magnesium 1.3 L (1.6-2.3) mg/dL AST 67 H (14-36) U/L ALT 38 H (4-34) U/L Lactate Dehydrogenase 665 H (313-618) U/L C-Reactive Protein 18.3 H (<10.0) mg/L Total Protein 5.5 L (6.3-8.2) g/dL Albumin 2.5 L (3.5-5.0) g/dL 10/28/19 10/28/19 Range/Units 16:45 20:02 WBC (3.8-10.6) k/uL RBC (3.80-5.40) m/uL Hgb (11.4-16.0) gm/dL MCV (80.0-100.0) fL Plt Count (150-450) k/uL Neutrophils # (1.3-7.7) k/uL Lymphocytes # (1.0-4.8) k/uL D-Dimer (<0.60) mg/L FEU Chloride (98-107) mmol/L Carbon Dioxide (22-30) mmol/L BUN (7-17) mg/dL Glucose (74-99) mg/dL POC Glucose (mg/dL) 119 H 156 H (75-99) mg/dL Calcium (8.4-10.2) mg/dL Magnesium (1.6-2.3) mg/dL AST (14-36) U/L ALT (4-34) U/L Lactate Dehydrogenase (313-618) U/L C-Reactive Protein (<10.0) mg/L Total Protein (6.3-8.2) g/dL Albumin (3.5-5.0) g/dL Microbiology - Last 24 Hours (Table) 10/27/19 08:26 Blood Culture - Preliminary Blood No Growth after 24 hours Assessment and Plan (1) Severe sepsis Current Visit: Yes Status: Acute Code(s): A41.9 - SEPSIS, UNSPECIFIED ORGANISM; R65.20 - SEVERE SEPSIS WITHOUT SEPTIC SHOCK SNOMED Code(s): 31274922 (2) Acute metabolic encephalopathy Current Visit: Yes Status: Acute Code(s): G93.41 - METABOLIC ENCEPHALOPATHY SNOMED Code(s): 18889126 (3) Community acquired pneumonia Current Visit: Yes Status: Acute Code(s): J18.9 - PNEUMONIA, UNSPECIFIED ORGANISM SNOMED Code(s): 283038223 (4) Heart block AV third degree Current Visit: No Status: Acute Code(s): I44.2 - ATRIOVENTRICULAR BLOCK, COMPLETE SNOMED Code(s): 63109897 Plan: 1. Severe sepsis. Suspect secondary to CAP. COVID PCR negative. Continue empiric treatment with rocephin and azithromycin, follow blood cultures. Goal of care discussion with daughter and hospice will evaluate pt as her overall prognosis is poor 2. Dementia. continue remeron qhs Continue GI and DVT prophylaxis
[2019-10-29] MEDS: SODIUM CHLORIDE 0.9% 1,000 ML IV SCH ×3 (06:07→21:31)
[2019-10-29 06:09] LABS: Glucose,Whole Blood 126 mg/dL (75-99)
[2019-10-29] MEDS: INSULIN ASPART (NovoLOG) 100 UNIT/ML VIAL SQ SCH ×5 (06:12→20:28)
[2019-10-29 07:34] LABS: Basophils % (A) 0 %; Eosinophils # (A) 0.1 k/uL (0-0.7); Eosinophils % (A) 1 %; HCT 35.4 % (34.0-46.0); HGB 11.4 gm/dL (11.4-16.0); Lymphocytes # (A) 1.2 k/uL (1.0-4.8); Lymphocytes % (A) 10 %; MCH 31.6 pg (25.0-35.0); MCHC 32.3 g/dL (31.0-37.0); MCV 97.9 fL (80.0-100.0); Mean Platelet Volume 9.1; Monocytes # (A) 0.6 k/uL (0-1.0); Monocytes % (A) 5 %; Neutrophils # (A) 9.9 k/uL (1.3-7.7); Neutrophils % (A) 83 %; Platelet Count 134 k/uL (150-450); RBC 3.61 m/uL (3.80-5.40); RDW 13.9 % (11.5-15.5); WBC 11.9 k/uL (3.8-10.6)
[2019-10-29 07:43] LABS: ALT 30 U/L (4-34); AST 61 U/L (14-36); African American GFR (CKD) >90 (>60 ml/min/1.73 sqM); Albumin 2.7 g/dL (3.5-5.0); Alkaline Phosphatase 75 U/L (38-126); Anion Gap 6 mmol/L; Blood Urea Nitrogen 20 mg/dL (7-17); Calcium 7.9 mg/dL (8.4-10.2); Carbon Dioxide 21 mmol/L (22-30); Chloride 111 mmol/L (98-107); Glucose 129 mg/dL (74-99); Non-African American GFR(CKD) 80 (>60 ml/min/1.73 sqM); Potassium 4.2 mmol/L (3.5-5.1); Sodium 138 mmol/L (137-145); Total Bilirubin 0.5 mg/dL (0.2-1.3); Total Protein 5.7 g/dL (6.3-8.2)
--- NOTE | 2019-10-29 09:23 | CDI ---
Documentation Clarification Form Date: 10/29/2019 09:12:28 AM From: Kristel LimaJESSICA, CCDS Admit Date: 10/27/2019 10:19:00 AM Patient Name: Jennifer Vargas Visit Number: [id number] Discharge Date: ATTENTION: The Clinical Documentation Specialists (CDI) and [facility] Coding Staff appreciate your assistance in clarifying documentation. Please respond to the clarification below the line at the bottom and electronically sign. The CDI & [facility] Coding staff will review the response and follow-up if needed. Please note: Queries are made part of the Legal Health Record. If you have any questions, please contact the author of this message via ITS. Dr. Barrrea Garcia: The patient presented with the following respiratory symptoms: Hypoxia is documented in the 10/27 Attending Progress Note. History/Risk Factors: Hypertension, Dementia, Hypothyroidism, NIDDM II, 3rd degree AV block with Pacemaker. Former smoker. Clinical Indicators: Presented to the ED on 10/26 via EMS from an Assisted Living Facility after being found unresponsive. Diagnosed with Sepsis, Severe sepsis, Pneumonia & Metabolic encephalopathy. Patient is confirmed DNR. Vital signs: T 103.7^, P 124^, R 26^, BP 172/95^, PO 100% NRB COVID-19 Negative Treatment: 100% non-rebreather, IV Cefepime, IV fluid 400 mls @ 1000 mls/hr, IV Vanco, IV fluid bolus 100 mls @ 999 mls/hr. Admit to Telemetry. In your professional opinion, can you please clarify if these findings signify one of the following conditions? Respiratory Failure ruled out Acute Respiratory Failure Acute on Chronic Respiratory Failure Chronic Respiratory Failure Other Diagnosis, please specify Unable to determine (Last Query Form Revision: February 2019) Acute respiratory failure MTDD
[2019-10-29] MEDS: ASPIRIN 81 MG PO SCH (09:48)
[2019-10-29] MEDS: LEVOTHYROXINE 112 MCG TAB PO SCH (09:48)
[2019-10-29] MEDS: HEPARIN SODIUM,PORCINE 5,000 UNIT/ML 1 ML VIAL SQ SCH ×2 (09:48→20:16)
[2019-10-29] MEDS: AZELASTINE 137MCG/SPRAY EA NOSTRIL SCH ×2 (09:48→20:16)
[2019-10-29] MEDS: PANTOPRAZOLE 40 MG/10 ML VIAL IV SCH (09:49)
[2019-10-29] MEDS: VANCOMYCIN 750 MG in SODIUM CHLORIDE 0.9% 250 ML IVPB SCH (09:49)
[2019-10-29 11:45] LABS: Glucose,Whole Blood 135 mg/dL (75-99)
[2019-10-29 16:49] LABS: Glucose,Whole Blood 109 mg/dL (75-99)
[2019-10-29] MEDS: AZITHROMYCIN 500 MG TAB PO SCH (19:56)
[2019-10-29] MEDS: MIRTAZAPINE 15 MG TAB PO SCH (20:16)
[2019-10-29 20:24] LABS: Glucose,Whole Blood 146 mg/dL (75-99)
[2019-10-29 20:34] LABS: Glucose,Whole Blood 142 mg/dL (75-99)
--- NOTE | 2019-10-29 22:26 | P.PN ---
Subjective Jennifer Vargas is an 89 yo F with hx dementia, HTN, T2DM who presented via EMS from her detention with fever and hypoxia. She was initially febrile to 103 with tachycardia and tachypnea. WBC 15k. Her COVID PCR was negative, blood culture negative, UA with few bacteria. Pt has been on rocephin and azithromycin, has been afebrile overnight, she is lethargic but rousable. Echo today showed mild pulmonary HTN and LVEF 45%. 10/28: she is awake and feeling better today, denies shortness of breath, chest pain, abdominal pain. blood culture negative. procalcitonin 1.5. Objective - Vital Signs Vital signs: Vital Signs Temp 98.1 F 10/29/19 15:38 Pulse 84 10/29/19 15:38 Resp 16 10/29/19 15:38 BP 145/71 10/29/19 15:38 Pulse Ox 100 10/29/19 15:38 Intake & Output 10/29/19 10/29/19 10/30/19 06:59 18:59 06:59 Intake Total 10 960 10 Output Total 390 Balance -380 960 10 Weight 41.3 kg Intake: Oral 10 960 10 Output: Urine 390 Other: Voiding Method Indwelling Catheter Indwelling Catheter - Exam General: thin elderly female in NAD. Vitals reviewed Lungs: diminished breath sounds, no wheezes or rales CV: Regular rate and rhythm, no murmur. Peripheral pulses 1+. 2+ edema cassandra Abdomen: soft, nondistended, no organomegaly Skin: warm and dry. - Labs CBC & Chem 7: 10/29/19 06:09 10/29/19 06:09 Labs: Abnormal Lab Results - Last 24 Hours (Table) 10/29/19 10/29/19 10/29/19 Range/Units 06:08 06:09 06:09 WBC 11.9 H (3.8-10.6) k/uL RBC 3.61 L (3.80-5.40) m/uL Plt Count 134 L (150-450) k/uL Neutrophils # 9.9 H (1.3-7.7) k/uL Chloride (98-107) mmol/L Carbon Dioxide (22-30) mmol/L BUN (7-17) mg/dL Glucose (74-99) mg/dL POC Glucose (mg/dL) 126 H (75-99) mg/dL Calcium (8.4-10.2) mg/dL AST (14-36) U/L Total Protein (6.3-8.2) g/dL Albumin (3.5-5.0) g/dL Procalcitonin 1.48 H (0.02-0.09) ng/mL 10/29/19 10/29/19 10/29/19 Range/Units 06:09 11:43 16:48 WBC (3.8-10.6) k/uL RBC (3.80-5.40) m/uL Plt Count (150-450) k/uL Neutrophils # (1.3-7.7) k/uL Chloride 111 H (98-107) mmol/L Carbon Dioxide 21 L (22-30) mmol/L BUN 20 H (7-17) mg/dL Glucose 129 H (74-99) mg/dL POC Glucose (mg/dL) 135 H 109 H (75-99) mg/dL Calcium 7.9 L (8.4-10.2) mg/dL AST 61 H (14-36) U/L Total Protein 5.7 L (6.3-8.2) g/dL Albumin 2.7 L (3.5-5.0) g/dL Procalcitonin (0.02-0.09) ng/mL 10/29/19 10/29/19 Range/Units 20:22 20:31 WBC (3.8-10.6) k/uL RBC (3.80-5.40) m/uL Plt Count (150-450) k/uL Neutrophils # (1.3-7.7) k/uL Chloride (98-107) mmol/L Carbon Dioxide (22-30) mmol/L BUN (7-17) mg/dL Glucose (74-99) mg/dL POC Glucose (mg/dL) 146 H 142 H (75-99) mg/dL Calcium (8.4-10.2) mg/dL AST (14-36) U/L Total Protein (6.3-8.2) g/dL Albumin (3.5-5.0) g/dL Procalcitonin (0.02-0.09) ng/mL Microbiology - Last 24 Hours (Table) 10/27/19 08:26 Blood Culture - Preliminary Blood No Growth after 48 hours Assessment and Plan (1) Severe sepsis Current Visit: Yes Status: Acute Code(s): A41.9 - SEPSIS, UNSPECIFIED ORGANISM; R65.20 - SEVERE SEPSIS WITHOUT SEPTIC SHOCK SNOMED Code(s): 59357628 (2) Acute metabolic encephalopathy Current Visit: Yes Status: Acute Code(s): G93.41 - METABOLIC ENCEPHALOPATHY SNOMED Code(s): 77641933 (3) Community acquired pneumonia Current Visit: Yes Status: Acute Code(s): J18.9 - PNEUMONIA, UNSPECIFIED ORGANISM SNOMED Code(s): 229807734 (4) Heart block AV third degree Current Visit: No Status: Acute Code(s): I44.2 - ATRIOVENTRICULAR BLOCK, COMPLETE SNOMED Code(s): 47574989 Plan: 1. Severe sepsis. Improving. Secondary to CAP vs UTI. Continue rocephin and azithromycin, follow blood cultures 2. Dementia. continue remeron qhs Continue GI and DVT prophylaxis
[2019-10-29 22:30] VITALS: TEMP 98.2
[2019-10-30 06:02] LABS: Glucose,Whole Blood 115 mg/dL (75-99)
[2019-10-30] MEDS: INSULIN ASPART (NovoLOG) 100 UNIT/ML VIAL SQ SCH ×2 (06:03→11:04)
[2019-10-30 06:57] LABS: Basophils % (A) 0 %; Eosinophils # (A) 0.1 k/uL (0-0.7); Eosinophils % (A) 1 %; HCT 32.7 % (34.0-46.0); HGB 10.6 gm/dL (11.4-16.0); Lymphocytes # (A) 1.2 k/uL (1.0-4.8); Lymphocytes % (A) 13 %; MCH 31.8 pg (25.0-35.0); MCHC 32.3 g/dL (31.0-37.0); MCV 98.4 fL (80.0-100.0); Mean Platelet Volume 9.2; Monocytes # (A) 0.4 k/uL (0-1.0); Monocytes % (A) 5 %; Neutrophils # (A) 7.3 k/uL (1.3-7.7); Neutrophils % (A) 80 %; Platelet Count 130 k/uL (150-450); RBC 3.33 m/uL (3.80-5.40); RDW 13.7 % (11.5-15.5); WBC 9.1 k/uL (3.8-10.6)
[2019-10-30 07:19] LABS: ALT 23 U/L (4-34); AST 45 U/L (14-36); African American GFR (CKD) >90 (>60 ml/min/1.73 sqM); Albumin 2.6 g/dL (3.5-5.0); Alkaline Phosphatase 64 U/L (38-126); Anion Gap 6 mmol/L; Blood Urea Nitrogen 16 mg/dL (7-17); Calcium 7.9 mg/dL (8.4-10.2); Carbon Dioxide 22 mmol/L (22-30); Chloride 111 mmol/L (98-107); Glucose 116 mg/dL (74-99); Non-African American GFR(CKD) 83 (>60 ml/min/1.73 sqM); Potassium 3.9 mmol/L (3.5-5.1); Sodium 139 mmol/L (137-145); Total Bilirubin 0.5 mg/dL (0.2-1.3); Total Protein 5.4 g/dL (6.3-8.2)
[2019-10-30] MEDS: PANTOPRAZOLE 40 MG/10 ML VIAL IV SCH (09:13)
[2019-10-30] MEDS: ASPIRIN 81 MG PO SCH (09:20)
[2019-10-30] MEDS: LEVOTHYROXINE 112 MCG TAB PO SCH (09:20)
[2019-10-30] MEDS: AZELASTINE 137MCG/SPRAY EA NOSTRIL SCH (09:20)
[2019-10-30] MEDS: HEPARIN SODIUM,PORCINE 5,000 UNIT/ML 1 ML VIAL SQ SCH (09:20)
[2019-10-30] MEDS: VANCOMYCIN 750 MG in SODIUM CHLORIDE 0.9% 250 ML IVPB SCH (09:43)
[2019-10-30 10:01] VITALS: BP 143/77; PULSE 87; RESP 16
[2019-10-30] MEDS ORDERED: POTASSIUM CHLORIDE ER 20 MEQ TAB.ER PO STA (11:59)
[2019-10-30] MEDS ORDERED: AMOXIC-POT CLAV 500-125 MG 1 EACH TAB PO SCH (12:00)
--- NOTE | 2019-10-30 12:37 | P.DS ---
Providers Date of admission: 10/27/19 10:19 Expected date of discharge: 10/30/19 Attending physician: Barrera Garcia MD Primary care physician: Stated None Hospital Course: Final Diagnoses: Assessment: Final Diagnoses: (1) Severe sepsis present on admission secondary to UTI, possibly community acquired pneumonia. Coronavirus not detected . Current Visit: Yes Status: Acute Code(s): A41.9 - SEPSIS, UNSPECIFIED ORGANISM; R65.20 - SEVERE SEPSIS WITHOUT SEPTIC SHOCK SNOMED Code(s): 64100720 (2) Acute metabolic encephalopathy in a patient with history of dementia Current Visit: Yes Status: Acute Code(s): G93.41 - METABOLIC ENCEPHALOPATHY SNOMED Code(s): 04372194 (3) Community acquired pneumonia Current Visit: Yes Status: Acute Code(s): J18.9 - PNEUMONIA, UNSPECIFIED ORGANISM SNOMED Code(s): 933851938 (4) Heart block AV third degree, ventricular paced Current Visit: No Status: Acute Code(s): I44.2 - ATRIOVENTRICULAR BLOCK, COMPLETE SNOMED Code(s): 28820801 (5) acute hypoxic respiratory failure, present on admission secondary to #1, resolved (6) former nicotine dependence (7) diabetes mellitus (8) hypothyroidism (9) lymphoma Jennifer Vargas is an 89 yo F with hx dementia, HTN, T2DM who presented via EMS from her long term with fever and hypoxia. She was initially febrile to 103 with tachycardia and tachypnea. WBC 15k. Her COVID PCR was negative, blood culture negative, UA with few bacteria. Pt has been on rocephin and azithromycin, has been afebrile overnight, she is lethargic but rousable. Echo today showed mild pulmonary HTN and LVEF 45%. 10/28: she is awake and feeling better today, denies shortness of breath, chest pain, abdominal pain. blood culture negative. procalcitonin 1.5. Case management, hospice working with daughter who requested [facility] with hospice .Patient will be discharged today to [facility] with hospice, in a stable condition with guarded prognosis. Hospice to arrange for equipment including a walker. The impression and plan of care has been dictated as directed. : I performed a history and examination of this patient, discussed the same with the dictator. I agree with the dictator's note ,documented as a scribe. Any additional findings or plans will be noted. Patient Condition at Discharge: Stable Plan - Discharge Summary Discharge Rx Participant: No New Discharge Prescriptions: New Amoxic-Pot Clav 500-125 mg [Augmentin 500-125 mg] 1 each PO BID #4 tab Melatonin 3 mg PO HS PRN #30 tablet PRN Reason: Insomnia Acetaminophen Tab [Tylenol] 650 mg PO Q6HR PRN #30 tab PRN Reason: Mild Pain Or Fever > 100.5 Telmisartan [Micardis] 40 mg PO DAILY #30 tab Continue Aspirin 81 mg PO DAILY@0800 #30 tab Azelastine HCl 137 mcg EA NOSTRIL BID@799,1999 #1 bottle Cranberry Fruit Extract [Cranberry] 1,000 mg PO DAILY@0800 #30 tab Mirtazapine 30 mg PO HS@1999 #30 tab Levothyroxine Sodium [Synthroid] 112 mcg PO DAILY@0800 #30 tab Discontinued Thiamine [Vitamin B-1] 100 mg PO DAILY@1100 Cholecalciferol [Vitamin D3] 400 unit PO DAILY@0800 amLODIPine BESYLATE/BENAZEPRIL [Lotrel 2.5-10 MG] 1 cap PO DAILY@1999 Discharge Medication List Acetaminophen Tab [Tylenol] 650 mg PO Q6HR PRN #30 tab 10/30/19 [Rx] Amoxic-Pot Clav 500-125 mg [Augmentin 500-125 mg] 1 each PO BID #4 tab 10/30/19 [Rx] Aspirin 81 mg PO DAILY@0800 #30 tab 10/30/19 [Rx] Azelastine HCl 137 mcg EA NOSTRIL BID@799,1999 #1 bottle 10/30/19 [Rx] Cranberry Fruit Extract [Cranberry] 1,000 mg PO DAILY@0800 #30 tab 10/30/19 [Rx] Levothyroxine Sodium [Synthroid] 112 mcg PO DAILY@0800 #30 tab 10/30/19 [Rx] Melatonin 3 mg PO HS PRN #30 tablet 10/30/19 [Rx] Mirtazapine 30 mg PO HS@1999 #30 tab 10/30/19 [Rx] Telmisartan [Micardis] 40 mg PO DAILY #30 tab 10/30/19 [Rx] Follow up Appointment(s)/Referral(s): None,Stated [Primary Care Provider] - 1-2 days Activity/Diet/Wound Care/Special Instructions: DC t[facility] with hospice Discharge Disposition: HOME WITH HOSPICE
[2019-10-30 12:58] VITALS: BMI 17.4
[2019-10-31] MEDS ORDERED: VANCOMYCIN TROUGH DUE 1 EACH MISC MISCELLANE ONE (08:00)
== END 2019-10-30 15:26 | disposition hospice, home (50) | DRG 871 ==
LOC: EC 08:03 → 3SCARD 10:19
PROVIDERS: ADMIT Family Medicine; ATTEND Family Medicine
DX: A41.9 Sepsis, unspecified organism (principal); J96.01 Acute respiratory failure with hypoxia; J18.9 Pneumonia, unspecified organism; G93.41 Metabolic encephalopathy; I44.2 Atrioventricular block, complete; N39.0 Urinary tract infection, site not specified; E87.2 Acidosis; Z66 Do not resuscitate; I25.10 Atherosclerotic heart disease of native coronary artery without angina pectoris; I27.20 Pulmonary hypertension, unspecified; I10 Essential (primary) hypertension; E03.9 Hypothyroidism, unspecified; L89.151 Pressure ulcer of sacral region, stage 1; E11.9 Type 2 diabetes mellitus without complications; F03.90 Unspecified dementia, unspecified severity, without behavioral disturbance, psychotic disturbance, mood disturbance, and anxiety; R65.20 Severe sepsis without septic shock; K56.41 Fecal impaction; R74.0 Nonspecific elevation of levels of transaminase and lactic acid dehydrogenase [LDH]; Z20.828 Contact with and (suspected) exposure to other viral communicable diseases; Z79.84 Long term (current) use of oral hypoglycemic drugs; Z79.890 Hormone replacement therapy; Z79.82 Long term (current) use of aspirin; Z79.899 Other long term (current) drug therapy; Z90.49 Acquired absence of other specified parts of digestive tract; Z98.890 Other specified postprocedural states; Z87.891 Personal history of nicotine dependence; Z82.49 Family history of ischemic heart disease and other diseases of the circulatory system; Z82.3 Family history of stroke; Z95.0 Presence of cardiac pacemaker; Z85.72 Personal history of non-Hodgkin lymphomas; Z88.5 Allergy status to narcotic agent
CPT/HCPCS: 36415; 51702; 70450; 71045; 74177; 80053; 81001; 82550; 83036; 83605; 83615; 83735; 84100; 84145; 85025; 85379; 85610; 85730; 86140; 87040; 87635; 93005; 93306; 96365; 96366; 96367; 99285